=== PATIENT | male | born 1950 | race African-American/Black ===

== ENCOUNTER 2016-11-09 08:20 | Day surgery (SDC) | payer OTHER ==
[~2016-11-09] VITALS: Ht 180.3 cm; Wt 108.0 kg
[~2016-11-09 08:20] MED LIST: ASPI325T PO; BACT800T5 PO; CARV12.52 PO; CIPR-9 PO; GABA300C5 PO; METF500T PO; RAMI5CAP PO
[2016-11-09] MEDS ORDERED: SODIUM BICARBONATE 100 MEQ in D5W 1000 ML IV SCH (09:00)
[2016-11-09] MEDS ORDERED: SODIUM CHLOR 0.9% 1000 ML INJ 1,000 ML IV SCH (09:00)
[2016-11-09] MEDS ORDERED: INSULIN HUMAN REGULAR 1,000 UNITS/10 ML VIAL SQ PRN (09:00)
[2016-11-09] MEDS ORDERED: LACTATED RINGER'S 1000 ML IV PRN (09:00)
[2016-11-09] MEDS ORDERED: METOPROLOL TARTRATE 25 MG TAB PO PRN (09:00)
[2016-11-09] MEDS ORDERED: SODIUM CHLORID 0.9% 500 ML IV PRN (09:00)
[2016-11-09] MEDS ORDERED: SODIUM CHLORIDE 0.9% FLUSH 10 ML FLUSH IV FLUSH PRN ×2 (09:00)
[2016-11-09] MEDS ORDERED: CHLORHEXIDINE GLUCONATE 2 % 1 PACK (2 CLOTHS) TOPICAL PRN (09:00)
[2016-11-09] MEDS ORDERED: POVIDONE IODINE 5% (ANTISEPSIS KIT) 4 APPLICATIONS EACH NARE PRN (09:00)
[2016-11-09 09:11] LABS: AUTOMATED NEUTROPHIL # 3.9 TH/MM3 (1.8-7.7); BASOPHIL % 0.5 % (0.0-2.0); EOSINOPHIL # 0.3 TH/MM3 (0-0.4); EOSINOPHIL % 5.3 % (0.0-4.0); HEMATOCRIT 39.5 % (39.0-51.0); HEMO FLAGS DIFF FINAL; LYMPH % 16.4 % (9.0-44.0); MEAN CELL VOLUME 88.6 FL (80.0-100.0); MEAN CORPUSCULAR HEMOGLOBIN 29.3 PG (27.0-34.0); MONO % 9.9 % (0.0-8.0); NEUT % 67.9 % (16.0-70.0); PLATELET COUNT 223 TH/MM3 (150-450); RED BLOOD COUNT 4.45 MIL/MM3 (4.50-5.90); RED CELL DISTRIBUTION WIDTH 12.9 % (11.6-17.2); WHITE BLOOD COUNT 5.8 TH/MM3 (4.0-11.0)
[2016-11-09 09:22] LABS: APTT (PATIENT) 31.8 SEC (24.3-30.1)
[2016-11-09 09:41] LABS: BICARBONATE 27.6 MEQ/L (21.0-32.0); POTASSIUM 4.2 MEQ/L (3.5-5.1)
[2016-11-09 09:42] VITALS: BP 148/81; PULSE 76; RESP 18; TEMP 97.9; O2SAT 100
[2016-11-09] MEDS ORDERED: MIDAZOLAM HCL 5 MG/ML VIAL (1 ML) ONE (11:07)
[2016-11-09] MEDS ORDERED: HEPARIN SODIUM - IV 10,000 UNITS/10 ML VIAL ONE (11:07)
--- NOTE | 2016-11-09 11:16 | PD.VS.PN ---
Pre-operative Note Pre-operative diagnosis: L LE diabetic toe gangrene, PAD Planned procedure: Aortogram w/ L LE angiogram and potential endovascular intervention Interval History: Pt has no changes in health since I saw him in clinic on Sunday. Specifically, no changes that would preclude planned procedure today Labs: Laboratory Results Test 11/09/16 09:00 White Blood Count 5.8 TH/MM3 (4.0-11.0) Red Blood Count 4.45 MIL/MM3 (4.50-5.90) Hemoglobin 13.0 GM/DL (13.0-17.0) Hematocrit 39.5 % (39.0-51.0) Mean Corpuscular Volume 88.6 FL (80.0-100.0) Mean Corpuscular Hemoglobin 29.3 PG (27.0-34.0) Mean Corpuscular Hemoglobin 33.0 % Concent (32.0-36.0) Red Cell Distribution Width 12.9 % (11.6-17.2) Platelet Count 223 TH/MM3 (150-450) Mean Platelet Volume 8.0 FL (7.0-11.0) Prothromb Time International 1.0 RATIO Ratio Sodium Level 133 MEQ/L (136-145) Potassium Level 4.2 MEQ/L (3.5-5.1) Chloride Level 99 MEQ/L (98-107) Carbon Dioxide Level 27.6 MEQ/L (21.0-32.0) Anion Gap 6 MEQ/L (5-15) Blood Urea Nitrogen 17 MG/DL (7-18) Random Glucose 149 MG/DL (74-106) Calcium Level 9.0 MG/DL (8.5-10.1) Blood: none needed Orders: NPO Post-operative destination: DOCU Operative site marked: Yes Consent: Informed consent has been obtained from Agustin Uriarte. I have explained the procedure in detail and discussed the risks, benefits, and potential complications. All questions have been answered. Patient contact information: Tammy,Osorio Awad MD Nov 09, 2016 11:16
[2016-11-09] MEDS ORDERED: IOHEXOL 300 MG/ML 50 ML BTL (for RAD DIAG) OTHER ONE (11:26)
[2016-11-09] MEDS ORDERED: IOHEXOL 300 MG/ML 100 ML BTL (for Rad CT) OTHER ONE (11:26)
--- NOTE | 2016-11-09 12:10 | HHI.PR ---
Immediate Post Op Note Procedure Date: Nov 09, 2016 Pre Op Diagnosis: PAD, L LE tissue loss, DM Post Op Diagnosis: PAD, L LE tissue loss, DM Surgeon: Osorio Munoz Javascript Ui Developer(s): none Procedure: Aortogram w/ L LE angiogram L peroneal MECHANIC INSULATOR Findings: high grade peroneal stenosis, MECHANIC INSULATOR to 3mm Patent L SFA stent (prev placed) AT/PT occlusion Additional Information: R BEATER ROOM HELPER Angioseal Complications: none apparent Specimen(s) removed: none Estimated blood loss: 5mL Anesthesia: MAC Drains: None Patient to: Other (DOCU) Patient Condition: Good Date/Time of Procedure: SEE SURGICAL CARE RECORD Osorio Munoz MD Nov 09, 2016 12:10
[2016-11-09] MEDS ORDERED: CLOPIDOGREL 75 MG TAB PO ONE (12:15)
[2016-11-09] MEDS ORDERED: BUME0.5T PO (13:42)
[2016-11-09] MEDS ORDERED: XARE20TA PO (13:42)
[2016-11-09] MEDS ORDERED: ULTR50TA5 PO (13:42)
[2016-11-09] MEDS ORDERED: ALDA50TA2 PO (13:42)
[2016-11-09] MEDS ORDERED: METO5TAB3 PO (13:42)
[2016-11-09] MEDS ORDERED: FURO1TAB60 PO (13:42)
[2016-11-09] MEDS ORDERED: RIVAROXABAN 20 MG TAB PO SCH (18:00)
--- NOTE | 2016-11-10 08:19 | MP ---
cc: OSORIO MUNOZ MD DATE OF SURGERY: 11/09/2016 PREOPERATIVE DIAGNOSIS 1. Left lower extremity tissue loss. 2. Peripheral vascular disease. POSTOPERATIVE DIAGNOSIS 1. Left lower extremity tissue loss. 2. Peripheral vascular disease. PROCEDURE 1. Aortogram with left lower extremity angiogram. 2. Left peroneal angioplasty. 3. Right common femoral artery Angio-Seal. ATTENDING SURGEON Osorio Munoz ANESTHESIA Local with sedation. INDICATION Mr. Uriarte is a 65-year-old gentleman with diabetes and peripheral vascular occlusive disease. He has nonpalpable pulses in a toe check wound. He is taken to the operating room for angiographic evaluation and potential treatment. There is no prior catheter-based imaging available for my review. DESCRIPTION OF PROCEDURE Informed consent was obtained from the patient and he was taken to the operating room and placed supine on the operating room table. An appropriate timeout was taken to ensure the patient's identity, the operative site and planned procedure. Antibiotics were not necessary as this was a clean procedure without planned implantation of any foreign object. Everyone in the room agreed with this timeout and we proceeded. The bilateral groins were prepped and draped and the right groin was anesthetized with 1% lidocaine. A 21-gauge micropuncture needle was used to access the right common femoral artery. This was exchanged using Seldinger technique for a micropuncture sheath through which a 0.035 Glidewire was introduced. The micropuncture sheath was exchanged for a 4-Guamanian sheath and a VCF catheter was placed over the wire and through the sheath. An aortogram and pelvic arteriogram was obtained. The Glidewire was navigated down to the left common femoral artery. The VCF catheter was advanced over this and a left lower extremity arteriogram was obtained. The patient was systemically heparinized with 5000 units of IV heparin. A 0.035 Conrad wire was passed through the VCF catheter down to the popliteal artery. The VCF catheter and 4-Guamanian sheath were removed and a 6-Guamanian 70 cm sheath was introduced. With the tip of the sheath in the mid SFA a CXI catheter was placed over the Conrad wire and the Conrad was exchanged for a CABIN SERVICE AGENT wire. Using the CABIN SERVICE AGENT and CXI we were able to navigate down to the peroneal artery and indeed down past the peroneal artery stenosis. An angiogram confirmed we were indeed past the peroneal artery stenosis. Over the 0.014 CABIN SERVICE AGENT wire a 3 x 60 balloon was used to angioplasty the peroneal artery. The completion angiogram showed excellent result without any recoil or extravasation or dissection. The wire, catheter and sheath were removed and the groin was closed with Angio-Seal. There were no complications. I was present and scrubbed for the entire procedure. INTERPRETATION OF IMAGES The patient has a patent infrarenal aorta, common iliac arteries, hypogastric arteries and external iliac arteries. The left hypogastric artery has a high-grade proximal stenosis. The left common femoral artery, profunda and SFA are widely patent. The popliteal artery is widely patent. Perigeniculate collaterals reconstituted the balance of the tibial vessels. The anterior tibial and posterior tibial arteries are occluded and the peroneal artery is the dominant in-line runoff to the ankle but has a high-grade midsegment stenosis that was successfully angioplastied. MD BIANKA Garcia/MAYG /2:33 PM /7:52 AM
[2016-11-10] MEDS ORDERED: CLOPIDOGREL 75 MG TAB PO SCH (09:00)
[2016-12-01] MEDS ORDERED: CART120C PO (10:18)
== END 2016-11-09 16:00 | disposition home or self-care (01) ==
LOC: HSDC 08:20 → HDIC 08:21 → HSDC 16:00
PROVIDERS: ATTEND Surgery
DX: I73.9 Peripheral vascular disease, unspecified (principal); E11.52 Type 2 diabetes mellitus with diabetic peripheral angiopathy with gangrene; I25.10 Atherosclerotic heart disease of native coronary artery without angina pectoris; I48.92 Unspecified atrial flutter; Z79.01 Long term (current) use of anticoagulants
CPT/HCPCS: 36140; 37228; 75710; 80048; 85025; 85610; 85730; C1725; C1769; G0269; J1644; J2250; J3010; J7070; Q9967; 37232

== ENCOUNTER → 2016-12-01 | Outpatient (CLI) | payer OTHER ==
[~2016-12-01] MED LIST changes: +ALDA50TA2 PO; +ATOR20TA15 PO; +BUME0.5T PO; +CART120C PO; -CARV12.52 PO; +CEPH500C PO; -CIPR-9 PO; +FURO1TAB60 PO; +METO5TAB3 PO; +OXYC-392 PO; -RAMI5CAP PO; +ULTR50TA5 PO; +VITA2000 PO; +XARE20TA PO
[2016-12-01 10:34] LABS: INTERNATIONAL NORMALIZED RATIO 1.1 RATIO; PROTHROMBIN TIME - PATIENT 12.4 SEC (9.8-11.6)
[2016-12-01 10:46] LABS: HEMATOCRIT 39.4 % (39.0-51.0); MEAN CELL VOLUME 86.9 FL (80.0-100.0); MEAN CORPUSCULAR HEMOGLOBIN 29.6 PG (27.0-34.0); MEAN CORPUSCULAR HGB CONC 34.1 % (32.0-36.0); PLATELET COUNT 232 TH/MM3 (150-450); RED BLOOD COUNT 4.53 MIL/MM3 (4.50-5.90); RED CELL DISTRIBUTION WIDTH 12.3 % (11.6-17.2); REVIEW FLAG FINAL; WHITE BLOOD COUNT 6.4 TH/MM3 (4.0-11.0)
[2016-12-01 11:00] LABS: BICARBONATE 27.8 MEQ/L (21.0-32.0); POTASSIUM 4.6 MEQ/L (3.5-5.1)
--- NOTE | 2016-12-01 11:45 | RADRPT ---
EXAM DATE/TIME: 12/01/2016 10:40 [facility] COMPARISON: CHEST SINGLE AP, October 22, 2014, 11:26. INDICATIONS : Evaluate for penumonia, penumothorax, or communicable disease. Pre op for amputation of toe. MEDICAL HISTORY : Hypertension. Hypercholesterolemia. Congestive heart failure. Diabetic. SURGICAL HISTORY : Pacemaker. ENCOUNTER: Initial ACUITY: 1 day PAIN SCORE: 0/10 LOCATION: chest FINDINGS: The lungs are clear without infiltrate, nodule, or mass. There is no appreciable pleural effusion fo r technique. Heart and mediastinum are unremarkable. Left subclavian transvenous pacer wire is prese nt with tip in the right ventricle. Degenerative changes and hypertrophic changes are seen within the disc space and facets of the thoracic spine. CONCLUSION: No acute cardiopulmonary disease. Violette Howell MD on December 01, 2016 at 11:43 Board Certified Radiologist. This report was verified electronically.
--- NOTE | 2016-12-06 22:09 | EKG ---
Date Performed: 12/01/2016 Time Performed: 10:12:09 PTAGE: 65 years EKG: Sinus rhythm NONSPECIFIC T-WAVE ABNORMALITY ABNORMAL ECG Compared to prior tracing no significant change DOCTOR: Michael Guerrero Interpretating Date/Time 12/06/2016 22:08:57
== END ==
LOC: CPRE 09:40
PROVIDERS: ATTEND Surgery
DX: Z01.810 Encounter for preprocedural cardiovascular examination (principal); Z01.811 Encounter for preprocedural respiratory examination; Z01.812 Encounter for preprocedural laboratory examination; I73.9 Peripheral vascular disease, unspecified; I10 Essential (primary) hypertension; R94.31 Abnormal electrocardiogram [ECG] [EKG]
CPT/HCPCS: 36415; 71020; 80048; 85027; 85610; 93005

== ENCOUNTER 2016-12-05 08:30 | Observation (INO) | payer MEDICARE, OTHER ==
[~2016-12-05] VITALS: Ht 177.8 cm; Wt 97.8 kg
[~2016-12-05 08:30] MED LIST changes: -ATOR20TA15 PO; -BACT800T5 PO; -BUME0.5T PO; -CEPH500C PO; -FURO1TAB60 PO; -METO5TAB3 PO; -OXYC-392 PO; -VITA2000 PO
[2016-12-06] MEDS ORDERED: SODIUM CHLORID 0.9% 500 ML IV PRN (07:15)
[2016-12-06] MEDS ORDERED: CHLORHEXIDINE GLUCONATE 2 % 1 PACK (2 CLOTHS) TOPICAL PRN (07:15)
[2016-12-06] MEDS ORDERED: METOPROLOL TARTRATE 25 MG TAB PO PRN (07:15)
[2016-12-06] MEDS ORDERED: LACTATED RINGER'S 1000 ML IV PRN (07:15)
[2016-12-06] MEDS ORDERED: POVIDONE IODINE 5% (ANTISEPSIS KIT) 4 APPLICATIONS EACH NARE PRN (07:15)
[2016-12-06] MEDS ORDERED: INSULIN HUMAN REGULAR 1,000 UNITS/10 ML VIAL SQ PRN (07:15)
[2016-12-06] MEDS ORDERED: PROPOFOL 200 MG/20 ML AMP IV ONE (07:40)
[2016-12-06] MEDS ORDERED: FAMOTIDINE 20 MG/2 ML VIAL ONE (08:35)
[2016-12-06] MEDS ORDERED: ACETAMINOPHEN 1000 MG/100 ML 100 ML IV ONE (08:38)
--- NOTE | 2016-12-06 08:41 | HHI.HP ---
History of Present Illness Chief Complaint: LEFT 3rd toe osteomyelitis History of Present Illness 66 yo male with HTN, DM, CHF, CAD and PAD who has L 3rd toe osteomyelitis. S/p angio with improved toe perfusion. Presents for toe amputation. Past/Family/Social History Past Medical History HTN DM CHF CAD afib PAD Past Surgical History pacer implantation LLE angiogram with peroneal RIVET HEATER Family History NC Home Medications Reported Medications Diltiazem ER 24 HR (Cartia Xt) 120 Mg Caper, 240 MG PO DAILY, #30 CAP 0 Refills 12/01/16 Spironolactone (Aldactone) 50 Mg Tab, 50 MG PO DAILY, #30 TAB 0 Refills 11/09/16 Tramadol (Ultram) 50 Mg Tab, 50 MG PO Q6H Y for PAIN, TAB 0 Refills 11/09/16 Rivaroxaban (Xarelto) 20 Mg Tab, 20 MG PO DAILY for Blood Clot Prevention, TAB 0 Refills RESUME TONIGHT 11/09/16 11/09/16 Aspirin (Aspirin) 325 Mg Tab, 325 MG PO DAILY, #1 TAB 0 Refills 03/02/16 Gabapentin (Gabapentin) 300 Mg Cap, 300 MG PO TID, #90 CAP 0 Refills 03/02/16 Metformin (Metformin) 500 Mg Tab, 500 MG PO TIDAC for Blood Sugar Management, # 60 TAB 0 Refills With meals 03/02/16 Discontinued Reported Medications Bumetanide (Bumetanide) 0.5 Mg Tab, 0.5 MG PO DAILY, TAB 0 Refills 11/09/16 Furosemide (Lasix) 40 Mg Tab, 40 MG PO BID, #60 TAB 0 Refills 11/09/16 Metolazone (Metolazone) 5 Mg Tab, 5 MG PO DAILY, #30 TAB 0 Refills 11/09/16 Coded Allergies: No Known Allergies (Verified , 12/01/16) Review of Systems Constitutional: DENIES: Fatigue, Chills Cardiovascular: DENIES: Syncope, Dyspnea on Exertion, Lower Extremity Edema Physical Exam Vitals/I&O Date Time Temp Pulse Resp B/P (MAP) Pulse Ox O2 Delivery O2 Flow Rate FiO2 12/06/16 07:40 98.2 76 16 146/77 (100) 99 Neuro: AAO, no complaints HEENT: NC/AT Neck: no JVD Heart: reg rate, no M Lungs: clear B Vascular: warm foot, Extremities: L 3rd toe bulbous Caprini VTE Risk Assessment Caprini VTE Risk Assessment: Mod/High Risk (score >= 2) Caprini Risk Assessment Model Point Value = 1 Point Value = 2 Point Value = 3 Point Value = 5 Age 41-60 Minor surgery BMI > 25 kg/m2 Swollen legs Varicose veins or History of unexplained or recurrent spontaneous Oral contraceptives or hormone replacement Sepsis (< 1 month) Serious lung disease, including pneumonia (< 1 month) Abnormal pulmonary function Acute myocardial infarction Congestive heart failure (< 1 month) History of inflammatory bowel disease Medical patient at bed rest Age 61-74 Arthroscopic surgery Major open surgery (> 45 min) Laparoscopic surgery (> 45 min) Malignancy Confined to bed (> 72 hours) Immobilizing plaster cast Central venous access Age >= 75 History of VTE Family history of VTE Factor V Leiden Prothrombin [id number] Lupus anticoagulant Anticardiolipin antibodies Elevated serum homocysteine Heparin-induced thrombocytopenia Other congenital or acquired thrombophilia Stroke (< 1 month) Elective arthroplasty Hip, pelvis, or leg fracture Acute spinal cord injury (< 1 month) Prophylaxis Regimen Total Risk Factor Score Risk Level Prophylaxis Regimen 0-1 Low Early ambulation 2 Moderate Order ONE of the following: *Sequential Compression Device (SCD) *Heparin 5000 units SQ BID 3-4 Higher Order ONE of the following medications: *Heparin 5000 units SQ TID *Enoxaparin/Lovenox 40 mg SQ daily (WT < 150 kg, CrCl > 30 mL/min) *Enoxaparin/Lovenox 30 mg SQ daily (WT < 150 kg, CrCl > 10-29 mL/min) *Enoxaparin/Lovenox 30 mg SQ BID (WT < 150 kg, CrCl > 30 mL/min) AND/OR *Sequential Compression Device (SCD) 5 or more Highest Order ONE of the following medications: *Heparin 5000 units SQ TID (Preferred with Epidurals) *Enoxaparin/Lovenox 40 mg SQ daily (WT < 150 kg, CrCl > 30 mL/min) *Enoxaparin/Lovenox 30 mg SQ daily (WT < 150 kg, CrCl > 10-29 mL/min) *Enoxaparin/Lovenox 30 mg SQ BID (WT < 150 kg, CrCl > 30 mL/min) AND *Sequential Compression Device (SCD) Assessment and Plan Plan L 3rd toe amputation, possibly open. Pt understands risks/benefits. Osorio Munoz MD Dec 06, 2016 08:41
[2016-12-06] MEDS ORDERED: ceFAZolin 2 GM PREMIX 50 ML ONE (08:57)
[2016-12-06] MEDS ORDERED: DO NOT ADM ANY ANTICOAGULANT DRUGS PRN (09:37)
[2016-12-06] MEDS ORDERED: *morphine SULFATE 8 MG/ML PERIprocedure ONLY ONE ×4 (09:55→14:28)
[2016-12-06] MEDS ORDERED: HYDROmorphone HCL 2 MG TAB PO PRN (10:00)
[2016-12-06] MEDS ORDERED: traMADol HCL 50 MG TAB PO PRN (10:00)
[2016-12-06] MEDS ORDERED: ENOXAPARIN SODIUM 30 MG/0.3 ML SYRINGE SQ SCH (10:00)
--- NOTE | 2016-12-06 10:13 | HHI.PR ---
Immediate Post Op Note Procedure Date: Dec 06, 2016 Pre Op Diagnosis: LEFT 3rd toe osteomyelitis Post Op Diagnosis: LEFT 3rd toe osteomyelitis Surgeon: Osorio Munoz Residence Supervisor(s): Ede Chappell MD Procedure: L 3rd Ray amputation Findings: decent perfusion, no undrained infection Additional Information: left open for wound care Complications: none Specimen(s) removed: toe for pathology Estimated blood loss: 10mL Anesthesia: LMA Drains: None Fluids: 500mL IVF Patient to: PACU Date/Time of Procedure: SEE SURGICAL CARE RECORD Osorio Munoz MD Dec 06, 2016 10:12
[2016-12-06] MEDS ORDERED: GLUCAGON 1 MG/ML VIAL OTHER PRN (10:15)
[2016-12-06] MEDS ORDERED: DEXTROSE 50% IN WATER 50 ML VIAL(D50) IV PRN (10:15)
[2016-12-06] MEDS: metFORMIN HCL 500 MG TAB PO SCH ×2 (12:00→16:57)
[2016-12-06] MEDS: INSULIN ASPART SUPPLEMENTAL SCALE SQ SCH ×3 (12:00→21:53)
[2016-12-06] MEDS: GABAPENTIN 300 MG CAP PO SCH ×2 (13:00→18:26)
[2016-12-06 16:00] VITALS: BP 137/71; PULSE 73; RESP 12; TEMP 95.8; O2SAT 100
[2016-12-06 20:00] VITALS: BP 111/59; PULSE 82; RESP 20; TEMP 96.4; O2SAT 100
[2016-12-06 22:25] VITALS: O2SAT 99
[2016-12-06 23:31] VITALS: BP 144/67; PULSE 79; RESP 19; TEMP 98; O2SAT 93
[2016-12-07 04:12] VITALS: BP_SYST 100; BP_DIAS 50; BP_DIAS 62; PULSE 80; PULSE 93; RESP 20; TEMP 97.5; O2SAT 100
[2016-12-07 08:00] VITALS: BP 106/61; PULSE 97; RESP 16; TEMP 97; O2SAT 99
[2016-12-07] MEDS: metFORMIN HCL 500 MG TAB PO SCH (08:21)
[2016-12-07] MEDS: GABAPENTIN 300 MG CAP PO SCH (08:21)
[2016-12-07] MEDS: INSULIN ASPART SUPPLEMENTAL SCALE SQ SCH (08:22)
--- NOTE | 2016-12-07 08:38 | PD.VS.PN ---
Subjective POD #: 1 Procedure(s): L 3rd Ray amputation Subjective/Hospital Course Pt c/o pain last night Pain controlled this am Pt alert in NAD Dressing I/C/D to Left foot Objective Vitals/I&O Date Time Temp Pulse Resp B/P (MAP) Pulse Ox O2 Delivery O2 Flow Rate FiO2 12/07/16 08:00 97.0 97 16 106/61 (76) 99 12/07/16 04:12 97.5 93 20 100/62 (75) 100 12/06/16 23:31 98.0 79 19 144/67 (92) 93 12/06/16 22:25 99 12/06/16 20:00 96.4 82 20 111/59 (76) 100 12/06/16 18:01 18 12/06/16 16:00 95.8 73 12 137/71 (93) 100 12/06/16 14:30 97.9 75 15 127/68 (87) 99 Room Air 12/06/16 13:15 75 16 129/62 (84) 99 Room Air 12/06/16 12:45 75 16 115/62 (79) 99 Room Air 12/06/16 12:15 82 15 153/74 (100) 99 Room Air 12/06/16 11:45 68 15 163/77 (105) 99 Room Air 12/06/16 11:15 67 16 152/77 (102) 99 Room Air 12/06/16 10:45 73 15 158/78 (104) 98 Room Air 12/06/16 10:30 73 15 161/80 (107) 100 Room Air 12/06/16 10:15 73 16 160/77 (104) 100 Room Air 12/06/16 10:00 80 16 173/82 (112) 100 Room Air 12/06/16 09:44 97.6 80 15 182/82 (115) 100 Nasal Cannula 2 12/07/16 12/07/16 12/07/16 07:00 15:00 23:00 Intake Total 120 ml Balance 120 ml Exam: GENERAL: A&OX3,NAD,GCS15 SKIN: Warm and dry/ L 3rd Ray amputation site w/o D/S/O/R + granulation tissue present LE warm with motor intact Assessment and Plan Plan S/P L 3rd toe amputation POD 1 Pt w/o complications Plan D/C today w/ HHC Arranged post op f/u Janey PEARSON [facility] [phone] Discharge Planning D/C to home w/ [facility] Janey Bender Dec 07, 2016 08:38
[2016-12-07] MEDS ORDERED: OXYC-392 PO (08:44)
--- NOTE | 2016-12-07 08:50 | PD.VS.DC ---
Discharge Summary Admission Date: Dec 06, 2016 at 06:38 Discharge Date: Dec 07, 2016 Admission Diagnosis: (1) DM (diabetes mellitus) (2) Amputated toe of left foot Discharge Diagnosis: (1) Amputated toe of left foot ICD Codes: Z89.422 - Acquired absence of other left toe(s) Brief History from admission 66 yo male with HTN, DM, CHF, CAD and PAD who has L 3rd toe osteomyelitis. S/p angio with improved toe perfusion. Presented for toe amputation. Procedure(s): L 3rd Ray amputation Significant Findings GENERAL: A&OX3,NAD,GCS15 SKIN: Warm and dry/ L 3rd Ray amputation site w/o D/S/O/R + granulation tissue present LE warm with motor intact Allergies Coded Allergies Type Severity Reaction Last Updated Verified No Known Allergies 12/01/16 Yes 12/05/16 12/05/16 12/06/16 12/06/16 12/07/16 12/07/16 06:00 18:00 06:00 18:00 06:00 18:00 Intake Total 1700 ml 360 ml Output Total 910 ml Balance 790 ml 360 ml Intake Oral 720 ml 360 ml IV Total 0 ml Other 980 ml Output Urine Total 400 ml Estimated Blood Loss 10 ml Other 500 ml # Voids 2 4 # Bowel Movements 0 Orders Procedure Category Date Status Time Lactated Ringer's MED 12/06/16 In Process 1000 Ml Inj (Lr 1000 M 07:15 Sodium Chlorid 0.9% MED 12/06/16 In Process 500 Ml Inj (Ns 500 M 07:15 Metoprolol Tartrate MED 12/06/16 In Process (Lopressor) 07:15 Povidone Iod 5% MED 12/06/16 In Process Antisepsis Kit 07:15 Chlorhexidine 2% MED 12/06/16 In Process Cloth (Chlorhexidine 07:15 Insulin Human Regular MED 12/06/16 In Process Inj (Novolin R Inj 07:15 Famotidine Inj MED 12/06/16 Complete (Pepcid Inj) 08:35 Acetaminophen 1000 MED 12/06/16 Complete Mg/100 Ml (Ofirmev 10 08:38 Cefazolin 2 Gm Premix MED 12/06/16 Complete (Ancef 2 Gm Premix 08:57 Am Admit Pre Op Care [facility] 12/06/16 Complete *Morphine Inj MED 12/06/16 Complete (*Morphine Inj 09:55 *Morphine Inj MED 12/06/16 Complete (*Morphine Inj 10:01 Place In Observation ADMITTING 12/06/16 Transmitted Code Status CODE 12/06/16 Transmitted 10:00 Activity Oob Ad Jennifer JERAD 12/06/16 In Process 10:[address] Peña JERAD 12/06/16 In Process 10:00 Wound JERAD 12/06/16 In Process 10:00 Diet Heart Healthy DIET 12/06/16 Transmitted Lunch Case Management CONS 12/06/16 Transmitted Consult Consult Pt Eval & PT 12/06/16 Logged Treat 10:00 Oxycodone (Roxicodone) MED 12/06/16 In Process 10:00 Hydromorphone MED 12/06/16 In Process (Dilaudid) 10:00 Scd Bilateral/Knee JERAD 12/06/16 In Process High 10:00 Aspirin (Aspirin) MED 12/07/16 In Process 09:00 Gabapentin (Neurontin) MED 12/06/16 In Process 13:00 Metformin (Glucophage) MED 12/06/16 In Process 12:00 Rivaroxaban (Xarelto) MED 12/07/16 In Process 09:00 Spironolactone MED 12/07/16 In Process (Aldactone) 09:00 Tramadol (Ultram) MED 12/06/16 In Process 10:00 Blood Glucose Goal JERAD 12/06/16 In Process (Criteria) 10:06 Hypoglycemia 70 Mg/Dl JERAD 12/06/16 In Process Or < 10:06 Notify Arden MARS 12/06/16 In Process 10:06 Dextrose 50% In William MED 12/06/16 In Process (Vial) Inj (D50w (Vi 10:15 Glucagon Inj MED 12/06/16 In Process (Glucagon Inj) 10:15 Insulin Aspart MED 12/06/16 In Process Supplemtl Scale 12:00 Misc Nursing MED 12/06/16 In Process Information 09:37 Diltiazem Cd MED 12/07/16 In Process (Cardizem Cd) 09:00 *Morphine Inj MED 12/06/16 Complete (*Morphine Inj 12:03 *Morphine Inj MED 12/06/16 Complete (*Morphine Inj 14:28 Anticoagulant Alert JERAD 12/06/16 In Process ^ Sling JERAD 12/06/16 In Process Resp Oxygen Jonathan C RSP 12/06/16 Logged Titrat 1-4 L Class Iv Pacu Ea 30 [facility] 12/06/16 Complete MIN General/Pacu [facility] 12/06/16 Complete Post Anesthesia Oxygen [facility] 12/06/16 Complete Bedside Glucose [facility] 12/06/16 Complete Sling Cradle Arm ORTHO 12/07/16 Complete (Hub Use Only)Inp Phy CONS 12/07/16 Transmitted Cons/Ref Attending Discharge DISCHARGE 12/07/16 Transmitted Order Vital Signs Date Time Temp Pulse Resp B/P (MAP) Pulse Ox O2 Delivery O2 Flow Rate FiO2 12/07/16 08:00 97.0 97 16 106/61 (76) 99 12/07/16 04:12 97.5 93 20 100/62 (75) 100 12/06/16 23:31 98.0 79 19 144/67 (92) 93 12/06/16 22:25 99 12/06/16 20:00 96.4 82 20 111/59 (76) 100 12/06/16 18:01 18 12/06/16 16:00 95.8 73 12 137/71 (93) 100 12/06/16 14:30 97.9 75 15 127/68 (87) 99 Room Air 12/06/16 13:15 75 16 129/62 (84) 99 Room Air 12/06/16 12:45 75 16 115/62 (79) 99 Room Air 12/06/16 12:15 82 15 153/74 (100) 99 Room Air 12/06/16 11:45 68 15 163/77 (105) 99 Room Air 12/06/16 11:15 67 16 152/77 (102) 99 Room Air 12/06/16 10:45 73 15 158/78 (104) 98 Room Air 12/06/16 10:30 73 15 161/80 (107) 100 Room Air 12/06/16 10:15 73 16 160/77 (104) 100 Room Air 12/06/16 10:00 80 16 173/82 (112) 100 Room Air 12/06/16 09:44 97.6 80 15 182/82 (115) 100 Nasal Cannula 2 12/06/16 07:40 98.2 76 16 146/77 (100) 99 Hospital Course: 66 yo male with HTN, DM, CHF, CAD and PAD who has L 3rd toe osteomyelitis. S/p angio with improved toe perfusion. Presented for toe amputation. Pt S/P amputation of 3rd toe (open) Pt w/o complications Pt to be d/c w/ [facility] Discharge Condition: Good Discharge Disposition: Disch w/ Home Health Serv Discharge Instructions: Apply wet to dry dressing daily Cleanse w/ NS daily Change dressing daily Report any new onset redness,swelling,drainage, odor, fever or chills Call the office with any questions or concerns May shower tomorrow AM NO Tub baths until surgical site is healed Janey PEARSON [facility] [phone] Any questions or concerns: Call [facility] Heart and Vascular Surgery at [facility] [phone] Janey Bender Dec 07, 2016 08:50
--- NOTE | 2016-12-07 08:58 | HHI.FF ---
Face to Face Verification Diagnosis: (1) PAD (peripheral artery disease) (2) DM (diabetes mellitus) (3) Amputated toe of left foot Home Health Nursing Order: Medical education Wound care and dressing changes Instructions: Apply wet to dry dressing daily Cleanse w/ NS daily Change dressing daily Report any new onset redness,swelling,drainage, odor, fever or chills Call the office with any questions or concerns May shower tomorrow AM NO Tub baths until surgical site is healed I have seen patient Agustin Uriarte on 12/07/16. My clinical findings support the need for the requested home health care services because: Pt is medically cleared and will need out patient Home health care for daily dressing changes and wound care management to aid in optimal healing Ltd mobility - disease progression Limited ability to care for self High risk of falls I certify that my clinical findings support that this patient is homebound because: Pt is medically cleared and will need out patient Home health care for daily dressing changes and wound care management to aid in optimal healing Unsteady gait/balance Janey Bender Dec 07, 2016 08:58
[2016-12-07] MEDS ORDERED: SPIRONOLACTONE 50 MG TAB PO SCH (09:00)
[2016-12-07] MEDS ORDERED: DILTIAZEM-CD 240 MG CAP ER PO SCH (09:00)
[2016-12-07] MEDS ORDERED: RIVAROXABAN 20 MG TAB PO SCH (09:00)
[2016-12-07] MEDS ORDERED: ASPIRIN 325 MG TAB PO SCH (09:00)
[2016-12-07 09:10] VITALS: O2SAT 96
--- NOTE | 2016-12-07 09:17 | MP ---
cc: OSORIO MUNOZ MD DATE OF SURGERY 12/06/2016 DIAGNOSIS Left third toe osteomyelitis. POSTOPERATIVE DIAGNOSIS Left third toe osteomyelitis. PROCEDURE Left third toe ray amputation ATTENDING SURGEON Osorio Munoz MD FLOODPLAIN MANAGER SURGEON Janes Chappell (Resident) ANESTHESIA LMA INDICATION Mr. Uriarte is a 66-year-old gentleman with left third toe osteomyelitis. He has recent perfusion and has been endovascularly revascularized. He is taken off room for an elective toe amputation. DESCRIPTION OF THE PROCEDURE Informed consent was obtained from the patient. He was taken to the operating room, placed supine on the operating table and an appropriate time-out was taken to ensure the patient's identity, operative site and planned procedure. The administration of two grams of Ancef was initiated prior to the skin incision and will be discontinued after a single preoperative dose. Everyone in the room agreed with the time-out and we proceeded. His left foot was prepped and draped. An incision made at the base of the left third toe, carried down through the subcutaneous tissue with electrocautery. The toe was amputated between the metatarsal and phalangeal joints and bones. The toe was passed off the table as a specimen. The metatarsal head was then resected with a rongeur. The wound was irrigated, made hemostatic, wrapped in Kerlix and the patient was transported to the recovery room in stable condition. I was present and scrubbed and performed the entire procedure. Osorio Munoz MD RJF/DJL /10:22 AM /9:05 AM
== END 2016-12-07 11:39 | disposition home health service (06) ==
LOC: EDSTATUS 08:30 → HSDI 12-06 06:38 → INTOOBSV 12-06 06:38 → N07B 12-06 14:43
PROVIDERS: ADMIT Surgery; ATTEND Surgery
DX: M86.9 Osteomyelitis, unspecified (principal); I73.9 Peripheral vascular disease, unspecified; E11.69 Type 2 diabetes mellitus with other specified complication; I11.0 Hypertensive heart disease with heart failure; I50.9 Heart failure, unspecified; I25.10 Atherosclerotic heart disease of native coronary artery without angina pectoris; I48.91 Unspecified atrial fibrillation; Z79.01 Long term (current) use of anticoagulants; Z79.84 Long term (current) use of oral hypoglycemic drugs
CPT/HCPCS: 01480; 28820; 82948; 88305; 88311; 96372; 97116; 97162; G0378; G8987; G8988; J0131; J0690; J1815; J2270; J3010; J7120; L3260

== ENCOUNTER 2017-01-02 11:11 | Emergency (ER) | payer OTHER ==
[~2017-01-02] VITALS: Ht 177.8 cm; Wt 100.0 kg
[~2017-01-02 11:11] MED LIST changes: +OXYC-392 PO
[2017-01-02 11:12] VITALS: BP 125/67; PULSE 86; RESP 18; TEMP 98.6; O2SAT 98
--- NOTE | 2017-01-02 11:43 | PD ---
HPI Chief Complaint: Medical Clearance Time Seen by Provider: 11:28 Travel History International Travel<30 days: No Contact w/Intl Traveler<30days: No Traveled to known affect area: No History of Present Illness HPI 66-year-old male with history of diabetes, hypertension, CHF, coronary artery disease, peripheral artery disease, atrial fibrillation presents for evaluation. The patient underwent left third toe amputation for osteomyelitis. This was performed on December 06. Reports that for the past 2 weeks he has had a foul smell emanating from the surgical wound site as well as increased pain in the foot and generalized weakness. He was seen on December [address] Munoz and started on Keflex which she has been taking as prescribed. Since then he has had worsening pain in the left foot, generalized weakness as well as low-grade fevers around 100, myalgias, headache. Symptoms are constant, no aggravating or alleviating factors. He endorses nausea but denies vomiting, diarrhea, abdominal pain, chest pain or shortness of breath, cough or congestion. He does have a slight hoarse voice. He has no other complaints at this time. PFSH Past Medical History Hx Anticoagulant Therapy: Yes Arthritis: Yes (HAND ARTHRITUS ) Blood Disorders: No Anxiety: No Depression: No Heart Rhythm Problems: Yes Cancer: No Cardiovascular Problems: Yes High Cholesterol: Yes Chest Pain: Yes Congestive Heart Failure: Yes Diabetes: Yes Patient Takes Glucophage: Yes Dialysis: Yes Diminished Hearing: Yes (BILAT HEARING DIMINISHED) Endocrine: Yes Genitourinary: No Hepatitis: No Hiatal Hernia: No Hypertension: Yes Immune Disorder: Yes (RA) Implanted Vascular Access Dvce: Yes Musculoskeletal: Yes Neurologic: No Psychiatric: No Reproductive: Yes (Erectile Dysfunction) Respiratory: No Thyroid Disease: No Past Surgical History Abdominal Surgery: No AICD: Yes Arteriovenous Shunt: Yes Body Medical Devices: Pacemaker/defib Cardiac Surgery: Yes (AICD, ABLATIONX2) Ear Surgery: No Endocrine Surgery: No Eye Surgery: Yes (for bleeding behind L eye) Genitourinary Surgery: No Gynecologic Surgery: No Joint Replacement: No Oral Surgery: Yes Pacemaker: Yes (AICD) Thoracic Surgery: No Tonsillectomy: Yes Other Surgery: Yes Social History Alcohol Use: No Tobacco Use: No Substance Use: No Allergies-Medications (Allergen,Severity, Reaction): Coded Allergies: No Known Allergies (Verified , 12/01/16) Reported Meds & Prescriptions Reported Meds & Active Scripts Active Reported Cephalexin 500 Mg Cap 500 Mg PO QID Atorvastatin (Atorvastatin Calcium) 20 Mg Tab 20 Mg PO DAILY Vitamin D3 (Cholecalciferol) 2,000 Unit Cap 2,000 Units PO DAILY Cartia Xt (Diltiazem ER 24 HR) 120 Mg Caper 240 Mg PO DAILY Aldactone (Spironolactone) 50 Mg Tab 50 Mg PO DAILY Ultram (Tramadol HCl) 50 Mg Tab 50 Mg PO Q6H PRN Xarelto (Rivaroxaban) 20 Mg Tab 20 Mg PO DAILY RESUME TONIGHT 11/09/16 Aspirin 325 Mg Tab 325 Mg PO DAILY Gabapentin 300 Mg Cap 300 Mg PO TID Metformin (Metformin HCl) 500 Mg Tab 500 Mg PO TIDAC With meals Review of Systems Except as stated in HPI: all other systems reviewed are Neg Physical Exam Narrative GENERAL: Well-developed well-nourished male in no acute distress SKIN: Warm and dry. Examination of the left third toe surgical site reveals some foul-smelling and vomiting from the wound, no obvious erythematous changes. HEAD: Atraumatic. Normocephalic. EYES: Pupils equal and round. No scleral icterus. No injection or drainage. ENT: No nasal bleeding or discharge. Mucous membranes pink and moist. NECK: Trachea midline. No JVD. CARDIOVASCULAR: Regular rate and rhythm. No murmur appreciated. RESPIRATORY: No accessory muscle use. Clear to auscultation. Breath sounds equal bilaterally. GASTROINTESTINAL: Abdomen soft, non-tender, nondistended. Hepatic and splenic margins not palpable. MUSCULOSKELETAL: Skin as noted above status post left third toe amputation. Dorsalis pedis pulses are dopplerable bilaterally. NEUROLOGICAL: Awake and alert. No obvious cranial nerve deficits. Motor grossly within normal limits. Normal speech. Data Data Last Documented VS Vital Signs Date Time Temp Pulse Resp B/P (MAP) Pulse Ox O2 Delivery O2 Flow Rate FiO2 01/02/17 11:50 97 Room Air 01/02/17 11:12 98.6 86 18 Orders Orders Complete Blood Count With Diff (01/02/17 11:34) Comprehensive Metabolic Panel (01/02/17 11:34) Lactic Acid Sepsis Protocol (01/02/17 11:34) Blood Culture (01/02/17 11:34) Wound Culture And Gram Stain (01/02/17 11:34) Ecg Monitoring (01/02/17 11:34) Iv Access Insert/Monitor (01/02/17 11:34) Oximetry (01/02/17 11:34) Sodium Chlorid 0.9% 500 Ml Inj (Ns 500 M (01/02/17 11:45) Ondansetron Inj (Zofran Inj) (01/02/17 11:45) Vancomycin Inj (Vancomycin Inj) (01/02/17 14:00) Piperacil-Tazo 3.375 Gm Premix (Zosyn 3. (01/02/17 14:00) Labs Laboratory Tests Test 01/02/17 11:50 01/02/17 12:24 White Blood Count 7.4 TH/MM3 Red Blood Count 4.31 MIL/MM3 Hemoglobin 12.6 GM/DL Hematocrit 37.9 % Mean Corpuscular Volume 87.9 FL Mean Corpuscular Hemoglobin 29.3 PG Mean Corpuscular Hemoglobin Concent 33.3 % Red Cell Distribution Width 12.7 % Platelet Count 292 TH/MM3 Mean Platelet Volume 8.0 FL Neutrophils (%) (Auto) 62.5 % Lymphocytes (%) (Auto) 18.7 % Monocytes (%) (Auto) 8.4 % Eosinophils (%) (Auto) 9.9 % Basophils (%) (Auto) 0.5 % Neutrophils # (Auto) 4.6 TH/MM3 Lymphocytes # (Auto) 1.4 TH/MM3 Monocytes # (Auto) 0.6 TH/MM3 Eosinophils # (Auto) 0.7 TH/MM3 Basophils # (Auto) 0.0 TH/MM3 CBC Comment DIFF FINAL Differential Comment Blood Urea Nitrogen 21 MG/DL Creatinine 1.19 MG/DL Random Glucose 137 MG/DL Total Protein 8.2 GM/DL Albumin 3.6 GM/DL Calcium Level 9.3 MG/DL Alkaline Phosphatase 158 U/L Aspartate Amino Transf (AST/SGOT) 11 U/L Alanine Aminotransferase (ALT/SGPT) 18 U/L Total Bilirubin 0.5 MG/DL Sodium Level 133 MEQ/L Potassium Level 4.3 MEQ/L Chloride Level 98 MEQ/L Carbon Dioxide Level 28.2 MEQ/L Anion Gap 7 MEQ/L Estimat Glomerular Filtration Rate 74 ML/MIN Lactic Acid Level 1.9 mmol/L MDM Medical Decision Making Medical Screen Exam Complete: Yes Emergency Medical Condition: Yes Medical Record Reviewed: Yes Differential Diagnosis Osteomyelitis, postoperative wound infection, abscess, cellulitis Narrative Course Plan is for basic lab work, blood cultures, wound culture. The patient was given 500 mL of normal saline. I discussed the case with Janey CABELLO with Dr. Munoz who examined the patient today and reports that actually the wound looks improved from when she saw last week. She would like the patient receive a dose of IV antibiotics and a prescription for Bactrim and she will follow-up in the office next week. The patient's labwork is been reviewed and found to be reassuring. He will be given a dose of vancomycin and Zosyn prior to discharge. Discussed signs and symptoms that would warrant returning to the emergency room. Diagnosis Primary Impression: Postoperative wound infection Referrals: Osorio Munoz MD Additional Instructions: Take antibiotic as prescribed. Follow up next week with your surgeon as discussed. Return for any acutely new or worsening symptoms. Med/Other Pt SpecificInfo: Prescription(s) given, Wound Care Scripts Sulfamethoxazole-Trimethoprim (Bactrim DS) 800-160 Mg Tab 1 TAB PO BID for Infection, #20 TAB 0 Refills Prov: Caron Solano DO 01/02/17 Disposition: 01 DISCHARGE HOME Condition: Stable Marcelino Coughlin Jan 02, 2017 11:43
[2017-01-02] MEDS ORDERED: ONDANSETRON HCL 4 MG/2 ML VIAL IV PUSH ONE (11:45)
[2017-01-02] MEDS ORDERED: SODIUM CHLORID 0.9% 500 ML INJ 500 ML IV ONE (11:45)
[2017-01-02 11:50] VITALS: O2SAT 97
[2017-01-02] MEDS ORDERED: VITA2000 PO (11:59)
[2017-01-02] MEDS ORDERED: CEPH500C PO (11:59)
[2017-01-02] MEDS ORDERED: ATOR20TA15 PO (11:59)
[2017-01-02 12:35] LABS: AUTOMATED NEUTROPHIL # 4.6 TH/MM3 (1.8-7.7); BASOPHIL % 0.5 % (0.0-2.0); EOSINOPHIL # 0.7 TH/MM3 (0-0.4); EOSINOPHIL % 9.9 % (0.0-4.0); HEMATOCRIT 37.9 % (39.0-51.0); HEMO FLAGS DIFF FINAL; LYMPH % 18.7 % (9.0-44.0); LYMPHOCYTE # 1.4 TH/MM3 (1.0-4.8); MEAN CELL VOLUME 87.9 FL (80.0-100.0); MEAN CORPUSCULAR HEMOGLOBIN 29.3 PG (27.0-34.0); MEAN CORPUSCULAR HGB CONC 33.3 % (32.0-36.0); MONO % 8.4 % (0.0-8.0); NEUT % 62.5 % (16.0-70.0); PLATELET COUNT 292 TH/MM3 (150-450); RED BLOOD COUNT 4.31 MIL/MM3 (4.50-5.90); RED CELL DISTRIBUTION WIDTH 12.7 % (11.6-17.2); WHITE BLOOD COUNT 7.4 TH/MM3 (4.0-11.0)
[2017-01-02 13:04] LABS: ALT (GPT) 18 U/L (12-78); ANION GAP 7 MEQ/L (5-15); AST (GOT) 11 U/L (15-37); BICARBONATE 28.2 MEQ/L (21.0-32.0); BLOOD UREA NITROGEN 21 MG/DL (7-18); CHLORIDE 98 MEQ/L (98-107); GLOMERULAR FILTRATION RATE 74 ML/MIN (>89); POTASSIUM 4.3 MEQ/L (3.5-5.1); SODIUM (NA) 133 MEQ/L (136-145)
[2017-01-02 13:07] LABS: ALKALINE PHOSPHATASE 158 U/L (45-117); TOTAL BILIRUBIN ADULT 0.5 MG/DL (0.2-1.0)
[2017-01-02] MEDS ORDERED: VANCOMYCIN INJ 1,000 MG in SODIUM CHLOR 0.9% 250 ML INJ 250 ML IV ONE (14:00)
[2017-01-02] MEDS ORDERED: PIPERACIL-TAZO 3.375 GM PREMIX 50 ML IV ONE (14:00)
[2017-01-02] MEDS ORDERED: BACT800T5 PO (14:12)
[2017-01-02 14:50] VITALS: BP 118/64; PULSE 82; RESP 16; O2SAT 100
--- NOTE | 2017-01-02 15:21 | PD.VS.PN ---
Subjective Subjective/Hospital Course Mr. Uriarte is a 66 yo male with a PMH of HTN, DM, CHF, CAD, PAD and L 3rd toe osteomyelitis. Pt is S/p angio with improved toe perfusion who presented for a L 3rd toe toe amputation on 12/06/16 Pt was seen in our out patient clinic last week and was prescribed Cephalexin due to L 3rd toe amputation site w/ odor, swelling and increased purulent drainage Pt seen and evaluated in the ED for continued odor Wound assessed and improved since last week Objective Vitals/I&O Date Time Temp Pulse Resp B/P (MAP) Pulse Ox O2 Delivery O2 Flow Rate FiO2 01/02/17 14:50 82 16 118/64 (82) 100 Room Air 01/02/17 11:50 97 Room Air 01/02/17 11:12 98.6 86 18 125/67 (86) 98 Room Air 01/02/17 01/02/17 01/02/17 07:00 15:00 23:00 Intake Total 500 ml Balance 500 ml Physical Exam GENERAL: Afebrile 66/M/ A&OX3, NAD, GCS15 SKIN: Warm and dry LE warm w/ motor intact Biphasic L DP/PT Pt with improved L foot swelling Pt with granulation tissue present with white exudate (medial aspect of amputation site) Odor present Laboratory Laboratory Tests Test 01/02/17 11:50 01/02/17 12:24 White Blood Count 7.4 Red Blood Count 4.31 Hemoglobin 12.6 Hematocrit 37.9 Mean Corpuscular Volume 87.9 Mean Corpuscular Hemoglobin 29.3 Mean Corpuscular Hemoglobin Concent 33.3 Red Cell Distribution Width 12.7 Platelet Count 292 Mean Platelet Volume 8.0 Neutrophils (%) (Auto) 62.5 Lymphocytes (%) (Auto) 18.7 Monocytes (%) (Auto) 8.4 Eosinophils (%) (Auto) 9.9 Basophils (%) (Auto) 0.5 Neutrophils # (Auto) 4.6 Lymphocytes # (Auto) 1.4 Monocytes # (Auto) 0.6 Eosinophils # (Auto) 0.7 Basophils # (Auto) 0.0 CBC Comment DIFF FINAL Differential Comment Blood Urea Nitrogen 21 Creatinine 1.19 Random Glucose 137 Total Protein 8.2 Albumin 3.6 Calcium Level 9.3 Alkaline Phosphatase 158 Aspartate Amino Transf (AST/SGOT) 11 Alanine Aminotransferase (ALT/SGPT) 18 Total Bilirubin 0.5 Sodium Level 133 Potassium Level 4.3 Chloride Level 98 Carbon Dioxide Level 28.2 Anion Gap 7 Estimat Glomerular Filtration Rate 74 Lactic Acid Level 1.9 Date/Time Source Procedure Growth Status 01/02/17 12:00 Blood Peripheral Aerobic Blood Culture Pending Received 01/02/17 12:00 Blood Peripheral Anaerobic Blood Culture Pending Received 01/02/17 12:00 Wound Foot Gram Stain Pending Received 01/02/17 12:00 Wound Foot Wound Culture Pending Received Assessment and Plan Assessment: (1) Amputated toe of left foot (2) Postoperative wound infection Status: Acute Plan Assessed wound, which appears to look improved since last assessment (last week) Pt Afebrile/labs ok Plan Wound improved since last assessment Arranged Out Pt f/u in 1W /Pt instructed to call the office with any questions or concerns Janey PEARSON [facility] [phone] Janey Bender Jan 02, 2017 15:21
== END 2017-01-02 16:33 | disposition home or self-care (01) ==
LOC: NEPE 11:11
DX: T81.4XXA Infection following a procedure, initial encounter (principal); B95.2 Enterococcus as the cause of diseases classified elsewhere; E11.9 Type 2 diabetes mellitus without complications; Z79.84 Long term (current) use of oral hypoglycemic drugs
CPT/HCPCS: 80053; 83605; 85025; 87040; 87070; 87077; 87186; 96361; 96365; 96367; 96375; 99284; J2405; J2543; J3370; J7040; J7050; L2114; 87205